=== PATIENT | female | born 1950 | race Caucasian/White ===

== ENCOUNTER 2017-01-06 07:07 | Day surgery (SDC) | payer MEDICARE, OTHER ==
[~2017-01-06 07:07] MED LIST: ACETAMINOPHEN 1,000 MG/100 ML BTL IV ONE; CEFAZOLIN 2 Gram 2 GM/50 ML BAG IVPB ONE; FAMOTIDINE 20MG TABLET PO ONE; MECLIZINE 25 MG TABLET PO ONE; METOCLOPRAMIDE 10 MG TABLET PO ONE
[2017-01-06] MEDS ORDERED: SEVOFLURANE 250 ML INH ONE (07:08)
[2017-01-06] MEDS ORDERED: EPINEPHRINE 1 MG/ML AMPUL SQ ONE (07:08)
[2017-01-06] MEDS ORDERED: EPHEDRINE SULFATE 50 MG/ML ML IV ONE (07:08)
[2017-01-06] MEDS ORDERED: LABETALOL HCL 5MG/ML, 20ML VIAL IVPB ONE (07:08)
[2017-01-06] MEDS ORDERED: PROPOFOL 10 MG/ML VIAL IV ONE (07:08)
[2017-01-06] MEDS ORDERED: TRAMADOL HCL 50 MG TABLET PO ONE (07:08)
[2017-01-06] MEDS ORDERED: DEXAMETHASONE 4 MG/ML 1ML VIAL IVP ONE (07:08)
[2017-01-06] MEDS ORDERED: KETOROLAC 30 MG/ML VIAL IVP ONE (07:08)
[2017-01-06] MEDS ORDERED: ROPIVACAINE HCL (NAROPIN) /PF 5MG/ML 20ML VIAL IV ONE (07:08)
[2017-01-06] MEDS ORDERED: LIDOCAINE 2% MDV (20MG/ML) 20ML VIAL IV ONE (07:08)
[2017-01-06] MEDS ORDERED: BUPIVACAINE 0.75% W/EPI MPF 30ML VIAL IVP ONE (07:08)
[2017-01-06] MEDS ORDERED: MIDAZOLAM HCL 2MG/2ML VIAL IV ONE (07:08)
[2017-01-06 07:18] LABS: BASO % 0.5 % (0-6); EOS % 1.7 % (0-6); GRAN % 60.1 % (47-80); HEMATOCRIT 44.2 % (35.0-47.0); HEMOGLOBIN 14.7 gm/dl (11.6-16.0); LYMPH % 27.7 % (16-45); MEAN CELL VOLUME 86.5 fl (81-97); MEAN CORPUSCULAR HEMOGLOBIN 28.8 pg (27-33); MEAN CORPUSCULAR HGB CONC 33.3 g/dl (32-36); MEAN PLATELET VOLUME 11.3 fl (7.4-10.4); PLATELET COUNT 172 K/uL (130-400); RED BLOOD COUNT 5.11 M/uL (3.80-5.40); RED CELL DISTRIBUTION WIDTH 15.5 % (11.5-14.5); WHITE BLOOD COUNT W/O DIFF 6.3 K/uL (4.2-12.2)
[2017-01-06 07:33] LABS: BLOOD UREA NITROGEN 22 mg/dL (8-23); CREATININE 0.9 mg/dL (0.5-0.9); EST GLOMERULAR FILTRATION RATE > 60 mL/min; GLUCOSE,RANDOM 115 mg/dL (74-109)
--- NOTE | 2017-01-07 06:19 | Operative Note ---
DATE: 01/06/2017. PREOPERATIVE DIAGNOSIS: Severe impingement of the left shoulder. POSTOPERATIVE DIAGNOSES: 1. 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 2. DIFFUSE SYNOVITIS OF THE LEFT SHOULDER. 3. COMPLEX ANTEROSUPERIOR GLENOHUMERAL LABRAL TEAR. 4. PROFOUND EXTERNAL IMPINGEMENT, LEFT SHOULDER. 5. ADVANCED ARTHROSIS, LEFT DISTAL CLAVICLE. PROCEDURES: 1. OPEN REPAIR OF A CHRONICALLY TORN LEFT ROTATOR CUFF TEAR. 2. LEFT SHOULDER ARTHROSCOPY WITH AN ARTICULAR DEBRIDEMENT. 3. LEFT SHOULDER OPEN ACROMIOPLASTY, CORACOACROMIAL LIGAMENT RESECTION, AND SUBACROMIAL BURSECTOMY. 4. LEFT SHOULDER DISTAL CLAVICLE RESECTION. STAFF SURGEON: Jose Casillas M.D. ANESTHESIA: General. PREPARATION: ChloraPrep. INDIVIDUAL CONSIDERATIONS: None. DESCRIPTION OF PROCEDURE: The patient was taken to the operating and placed supine on the operating table. She had a successful induction of a general anesthetic. She was then placed in a semi-seated beach chair position, and her left arm and shoulder were prepped and draped in the usual fashion. Examination under anesthesia showed no instability. The patient had posterior portal identified for arthroscopy. The skin was infiltrated with 0.5% Marcaine with epinephrine prior. An 18-gauge spinal needle was easily placed in the joint, and the joint was inflated with normal saline with a 60 mL syringe. A stab wound was made, a blunt-tipped trocar for the scope was placed in the joint , and the joint was inflated with normal saline. An anterior accessory portal was then made just inferior to the intact long head of the biceps tendon in a retrograde fashion with a Wissinger fredrick, and the joint was irrigated out. She had diffuse synovitis which was debrided with a shaver and a large tear of the supraspinatus which was obvious with fraying of the labrum superiorly and anteriorly. This was smoothed off with a shaver. The glenohumeral joint was normal, and no loose bodies were seen in the pouch of either gutter. In the gutter there was some synovitis which was debrided. After irrigation, the portals were closed with nanda. The patient had an anterior approach to the subacromial space and distal clavicle. The skin was again infiltrated with 0.5% Marcaine with epinephrine prior. Sharp dissection was carried down through the skin and subcutaneous tissue. Small veins were coagulated with a Bovie. An anterior deltoid interval was developed. Care was taken not to split the deltoid more than about 4.0 cm distal to the anterior tip of the acromion to prevent injury to the axillary nerve. Once in the subacromial space, there was a large carreno of fluid consistent with a tear. The patient had a downsloping acromion and spurs at the acromioclavicular joint. The deltoid was then taken subperiosteally off the anterior aspect of the acromion, over the top of the intact coracoacromial ligament, and off the anterior aspect of the degenerated distal clavicle. The coracoacromial ligament was resected with a Bovie. The distal clavicle, taking about 1.0 cm, was resected with an oscillating saw. An anterior acromioplasty was performed, taking mainly spur and downsloping, tapering until it was posteromedial using an oscillating saw. It was smoothed off with a rasp. The patient had an extremely thick bursa, some areas 1.0 cm. This was debrided out with Metzenbaum scissors. I now had a good look at the rotator cuff. She had a large tear which was oblique, involving about 1.5 cm of the supraspinatus and running obliquely in the bulk of the tendon of the infraspinatus and part of the supraspinatus. I was able to debride the ends of it and bring it down. I made a small trough, and for the tuberosity for the supraspinatus I used 0 Ethibond retention sutures. I then isabel those into the bone and sutured that down tying knots distally. For the remaining oblique, I was able to suture tendon with buried knot 0 Ethibond sutures. This gave an excellent stable repair. I put it through a full range of motion, and there was no impingement. After irrigation, the deltoid was reattached to the remaining acromion with multiple interrupted #2 Vicryl going directly through the bony acromion. The periosteal cuff of the distal clavicle was closed with a running #2 Vicryl. Subcutaneous was closed with #2-0+ Vicryl. The skin was closed with nanda. A total of 10 mL of 0.75% Marcaine with epinephrine was injected into the subacromial space with a sterile 18-gauge needle, and a sterile bulky compressive dressing was applied. A sling was also applied. The patient tolerated the procedures well, and needle and sponge counts were correct. Estimated blood loss was minimal, and she was taken back recovery in good condition. There were no complications. KATARINA
== END 2017-01-06 12:42 | disposition home or self-care (01) ==
LOC: SUR 07:07
PROVIDERS: ATTEND Orthopaedic Surgery
DX: M75.122 Complete rotator cuff tear or rupture of left shoulder, not specified as traumatic (principal); M75.42 Impingement syndrome of left shoulder; M19.012 Primary osteoarthritis, left shoulder; E03.9 Hypothyroidism, unspecified
CPT/HCPCS: 23420; 01610; 64415; 85025; 80048; J1885; J0690; J2795; J3490; J0171